=== PATIENT | male | born 1950 | race Caucasian/White ===

== ENCOUNTER 2018-05-05 08:49 | Day surgery (SDC) | payer OTHER ==
[2018-05-05] MEDS ORDERED: MIDAZOLAM 1 MG/ML 2 ML INJ ×2 (11:41)
[2018-05-05] MEDS ORDERED: FENTAnyl 50 MCG/ML VIAL (11:41)
== END 2018-05-05 14:31 | disposition home or self-care (01) ==
LOC: GIL 08:49
DX: Z12.11 Encounter for screening for malignant neoplasm of colon (principal); K64.8 Other hemorrhoids; K64.4 Residual hemorrhoidal skin tags; K57.90 Diverticulosis of intestine, part unspecified, without perforation or abscess without bleeding; I10 Essential (primary) hypertension
CPT/HCPCS: 45378